=== PATIENT | male | born 1950 | race African-American/Black ===

== ENCOUNTER 2017-03-31 17:15 | Emergency (ER) | payer OTHER, MEDICAID ==
[~2017-03-31] VITALS: Ht 167.6 cm; Wt 62.1 kg
[2017-03-31 19:15] LABS: BASOPHIL % 1.2 % (0-2); PLATELET COUNT 238 x10^3mcL (130-400); RED CELL DISTRIBUTION WIDTH 13.8 % (11.5-14.5)
[2017-03-31 19:18] LABS: CALCIUM 9.2 mg/dL (8.5-10.1); CARBON DIOXIDE 28.1 mmol/L (21-32); CHLORIDE SERUM 105 mmol/L (98-107); CREATININE SERUM 1.4 mg/dL (0.7-1.3); GFR1 54 mL/min; GLUCOSE SERUM 124 mg/dL (74-106); POTASSIUM SERUM 3.8 mmol/L (3.5-5.1); SODIUM SERUM 142 mmol/L (136-145)
[2017-03-31 19:30] LABS: ALBUMIN 3.9 g/dL (3.4-5.0); ALKALINE PHOSPHATASE 66 U/L (46-116); ALT/SGPT 23 U/L (16-63); AST/SGOT 19 U/L (15-37); BILIRUBIN TOTAL 0.42 mg/dL (0.20-1.00); T4(THYROXINE) 8.5 ug/dL (4.7-13.3); TOTAL PROTEIN, SERUM 8.1 g/dL (6.4-8.2)
[2017-03-31 22:37] LABS: AMPHETAMINE QUAL UR NONE DETECTED (NEG <=1000)
[2017-04-01] MEDS ORDERED: PREDNISOLONE ACE5 ML OU (08:27)
[2017-04-01] MEDS ORDERED: CILOS OU (08:27)
[2017-04-01] MEDS ORDERED: [UNRECOGNIZED DRUG - CODE] OD (08:28)
[2017-04-01 08:35] LABS: CHOLESTEROL/HDL RATIO 3.2
[2017-04-01 08:36] LABS: BASOPHIL % 0.7 % (0-2); PLATELET COUNT 232 x10^3mcL (130-400); RED CELL DISTRIBUTION WIDTH 14.1 % (11.5-14.5)
[2017-04-01 08:44] LABS: FREE T4 1.39 ng/dL (0.76-1.46); FREE THYROXINE INDEX 3.1 ug/dL (1.4-4.5); T4(THYROXINE) 8.3 ug/dL (4.7-13.3)
[2017-04-01 09:39] LABS: T3 TOTAL 0.97 ng/mL
[2017-04-01] MEDS ORDERED: LISINOPRIL10 MG PO (10:31)
[2017-04-01] MEDS ORDERED: PROAIR RES117 MCG/Ac IH (10:31)
[2017-04-01] MEDS ORDERED: AMLODIPINE BESY10 M2 PO (10:32)
[2017-04-01] MEDS ORDERED: PEPCID20 MG PO (10:33)
[2017-04-01] MEDS ORDERED: APAP/HYDROCODON1 T11 PO (10:33)
[2017-04-01] MEDS ORDERED: EC NAPROSYN500 MG PO (10:33)
[2017-04-01] MEDS ORDERED: NEPHRO-VITE VITA1 EA PO (10:33)
[2017-04-01 12:50] LABS: microscopic required? NO
[2017-04-01 12:56] LABS: urine erythrocyte NEGATIVE (NEGATIVE)
[2017-04-01 17:39] VITALS: BP 138/65
--- NOTE | 2017-04-01 18:15 | NUR ---
SOCIAL SERVICE NOTE: RECEIVED REQUEST EARLIER TODAY TO ASSIST WITH THE PT'S DC PLAN. HE WAS BROUGHT IN WITH HOMICIAL IDEATION AND CCRT HAD ASSESSED HIM FOR A 5150 HOLD. THE ER TEAM HAD CALLED MANY PSYCH FACILITIES WITH NO SUCCESS. I CALLED AND SPOKE WITH ANDREW AT [facility] WHO ADVISED THAT THE BEST TIME TO CALL FOR A PSYCH BED WAS MID-DAY DUE TO THE WAY THE PSYCH FACILITIES DISCHARGE PLAN. I RELAYED THIS TO THE ER STAFF AND THEY MADE ADDITIONAL CALLS OVER THE COURSE OF THE DAY. OF 1599, THEY'D HAD NO SUCCESS APART FROM [facility] WILLING TO CONSIDER THE PT IF WE COULD GET INSURANCE AUTHORIZATION FOR THE PLAN. I CALLED AND SPOKE WITH SAEID WITH [facility] ([phone], [phone]) WHO DEFERRED ME TO THEIR BEHAVIORAL HEALTH CONTRACT, [facility] ([phone]). I SPOKE WITH ROSALINA ([phone]) AND TOREY ([phone]) WHO INFORMED ME THAT THEY WILL NOT WORK WITH ANY [facility] OR [facility] FACILITIES. THEY DEFERRED ME TO THEIR CONTRACTED LIST WHICH INCLUDED [facility], ALL OF THE [facility] AND [facility] ([phone]). I CALLED [facility] AND SPOKE WITH SHAMA; ALSO FAXED THE CLINICAL DATA (FAX [phone]). SHE HAS ACCEPTED THIS PT A DIRECT ADMIT AND WHEN WE CAN SEND WHEN THE PHYSICIAN IS READY TO SEND. I CALLED AND SPOKE WITH CHICA AT [place] [employer] AT APPROXIMATELY 1815 TO REQUEST AN OFFICER FOR A 5150 HOLD, EXPLAINING TO HER THAT WE CANNOT USE ANY HOLDS WRITTEN BY OUR LOCAL CCRT OR PSYCHOLOGISTS THEIR HOLDS ARE ONLY GOOD FOR THIS [facility]. SHE WILL DISPATCH AN OFFICER. I CALLED THE INSURANCE AFTER HOURS #- [phone]- AND SPOKE WITH THE HOSPICE PHYSICIAN IRRIGATOR GRAVITY FLOW, ELKE, TO REQUEST AUTHORIZATION FOR TRANSPORT. HE TOLD ME THEIR CONTRACTED TRANSPORT WAS [employer] [facility] ([phone]). I TOLD HIM THAT THIS COMPANY WOULD NOT LIKELY BE ABLE TO AIRCRAFT ENGINE TECHNICIAN IN MY COUNTY AND HE THEN INSTRUCTED ME TO USE OUR LOCAL AMBULANCE COMPANY IF [employer] COULD NOT AIRCRAFT ENGINE TECHNICIAN. I CALLED [employer] AND SPOKE WITH SOLO WHO DECLINED THIS REFERRAL DUE TO BEING UNABLE TO [place]. I UPDATED NURSING WITH ALL OF THE ABOVE INFO, WELL DR. PAREKH. NURSING WILL NEED TO CALL [facility] FOR TRANSPORT AND INSTRUCT THEM THAT THIS HAS BEEN AUTHORIZED THROUGH THE PT'S INSURANCE- SCAN AND [employer], THOUGH NO AUTH # IS AVAILABLE AT THIS TIME. NO FURTHER FOLLOW-UP NEEDED.
[2017-04-01 21:14] LABS: BASOPHIL % 0.8 % (0-2); PLATELET COUNT 208 x10^3mcL (130-400); RED CELL DISTRIBUTION WIDTH 14.2 % (11.5-14.5)
[2017-04-01 21:16] LABS: BILIRUBIN TOTAL 0.46 mg/dL (0.20-1.00); CALCIUM 8.7 mg/dL (8.5-10.1); CARBON DIOXIDE 29.5 mmol/L (21-32); CREATININE SERUM 1.3 mg/dL (0.7-1.3); PHOSPHOROUS 2.5 mg/dL (2.5-4.9); POTASSIUM SERUM 3.4 mmol/L (3.5-5.1); TOTAL PROTEIN, SERUM 6.7 g/dL (6.4-8.2)
[2017-04-01 21:21] LABS: ALBUMIN 3.1 g/dL (3.4-5.0)
[2017-04-01 22:07] VITALS: BP 116/73
== END 2017-04-01 22:08 ==
LOC: ED 17:15
PROVIDERS: Emergency Medicine; Family Medicine
DX: Z00.00 Encounter for general adult medical examination without abnormal findings (principal); R45.850 Homicidal ideations; F17.200 Nicotine dependence, unspecified, uncomplicated; Z71.6 Tobacco abuse counseling
CPT/HCPCS: 80307; 83880; 84439; 99406; G0480; J7620; J7633; Q0092